=== PATIENT | female | born 1975 | race Two or more races ===

== ENCOUNTER 2019-12-06 07:32 | Outpatient (CLI) | payer OTHER | END 2019-12-08 06:19 | disposition home or self-care (01) | LOC: TOM 07:32 | DX: D12.5 Benign neoplasm of sigmoid colon (principal); K56.690 Other partial intestinal obstruction ==

== ENCOUNTER 2021-09-12 06:59 | Outpatient (CLI) | payer OTHER | END 2021-09-12 16:05 | disposition home or self-care (01) | LOC: MRI 06:59 | PROVIDERS: ATTEND General Practice | DX: R10.2 Pelvic and perineal pain (principal); N83.01 Follicular cyst of right ovary | CPT/HCPCS: 72197; 74183 ==

== ENCOUNTER 2024-02-20 13:55 | Outpatient (CLI) | payer OTHER | END 2024-02-20 14:04 | disposition home or self-care (01) | LOC: MRI 13:55 | PROVIDERS: ATTEND General Practice | DX: R51.9 Headache, unspecified (principal); G43.909 Migraine, unspecified, not intractable, without status migrainosus | CPT/HCPCS: 70551 ==